=== PATIENT | female | born 1945 | race Caucasian/White ===

== ENCOUNTER 2019-10-10 20:16 | Emergency (ER) | payer MEDICARE, BC ==
[~2019-10-10] VITALS: Ht 157.5 cm; Wt 69.9 kg
[~2019-10-10 20:16] MED LIST: LOSA100T31 PO; TAMS-12 PO
--- NOTE | 2019-10-10 20:30 | NUR ---
PT AAOX4. BIBHUSBAND. C/O HEAD INJURY S/P FALL OFF STEP STOOL IN KITCHEN. -KO -LOC. MOD BLEEDING ON BACK OF HEAD. ALSO C/O BACK PAIN 11/04. PLACED ON MONITOR AND PULSE OX. MD AT BEDSIDE FOR EVAL. VSS.
[2019-10-10] MEDS ORDERED: LIDOCAINE HCL/MPF 1% 30 ML VIAL IJ ONE (20:44)
[2019-10-10] MEDS ORDERED: TDAP [DIPH/PERTUSSIS/TET] 0.5 ML VIAL IM ONE ×2 (20:46→21:00)
[2019-10-10] MEDS ORDERED: LIDOCAINE 2% 20 ML MDV TP ONE (21:00)
[2019-10-10 21:59] VITALS: BP 132/75
--- NOTE | 2019-10-10 21:59 | NUR ---
Patient discharged to home in stable condition. Written and verbal after care instructions given. Patient verbalizes understanding of instruction.
== END 2019-10-10 22:00 | disposition home or self-care (01) ==
LOC: ER 20:16
DX: S01.01XA Laceration without foreign body of scalp, initial encounter (principal); I10 Essential (primary) hypertension; M81.0 Age-related osteoporosis without current pathological fracture; E78.5 Hyperlipidemia, unspecified; Z79.899 Other long term (current) drug therapy; W17.89XA Other fall from one level to another, initial encounter; Y93.89 Activity, other specified; Y92.090 Kitchen in other non-institutional residence as the place of occurrence of the external cause; Y99.8 Other external cause status
CPT/HCPCS: 12002; 70450; 71045; 72125; 72170; 90471; 90715; 99285; J3490; L0172

== ENCOUNTER 2024-05-09 19:55 | Emergency (ER) | payer MEDICARE, BC ==
[~2024-05-09] VITALS: Ht 154.9 cm; Wt 64.4 kg
[2024-05-09] MEDS ORDERED: LIDOCAINE HCL/MPF 1% 30 ML VIAL IJ ONE (22:04)
[2024-05-09] MEDS: LIDOCAINE 1% INJ 50 ML MDV IJ ONE (22:12)
[2024-05-09] MEDS ORDERED: CEPH-570 PO (22:20)
[2024-05-09 22:35] VITALS: BP 143/71; TEMP 97.8; O2SAT 99
== END 2024-05-09 22:35 | disposition home or self-care (01) ==
LOC: ER 19:57
DX: S61.012A Laceration without foreign body of left thumb without damage to nail, initial encounter (principal); I10 Essential (primary) hypertension; E78.5 Hyperlipidemia, unspecified; W26.8XXA Contact with other sharp object(s), not elsewhere classified, initial encounter; Y93.89 Activity, other specified; Y92.098 Other place in other non-institutional residence as the place of occurrence of the external cause; Y99.8 Other external cause status
CPT/HCPCS: 12001; 99283; J3490